=== PATIENT | female | born 1985 | race Caucasian/White ===

== ENCOUNTER 2019-07-30 10:03 | Emergency (ER) | payer OTHER, SELFPAY ==
--- NOTE | 2019-07-30 10:06 | ED.GENADULT ---
HPI - General Adult General Chief complaint: Upper Respiratory Infection Stated complaint: sore throat/sinus pressure/ear pn Time Seen by Provider: 07/30/19 10:06 Source: patient Mode of arrival: ambulatory Limitations: no limitations History of Present Illness HPI narrative: 33-year-old female patient presents to the [facility] with complaints of cold symptoms that started about 3 days ago. Patient states that started with a sore throat and is gotten progressively worse with aches, low-grade fever, bilateral ear pain and some sinus drainage. Patient states that she does have issues of chronic sinusitis. Patient states she has been taking DayQuil and NyQuil for her symptoms. Patient denies getting a flu shot this year. Patient states that she is an active smoker. Denies any chest pain or shortness of breath. Denies any abdominal pain, nausea, vomiting or diarrhea. Related Data Allergies Allergy/AdvReac Type Severity Reaction Status Date / Time LICE [place] Allergy Unknown Uncoded 11/22/14 21:16 Review of Systems Review of Systems: Narrative: CONSTITUTIONAL: Positive low-grade fever, chills, body aches and sweats. EYES: Denies visual changes, redness, or discharge. ENT: Positive rhinorrhea, congestion, sore throat, and bilateral otalgia. CARDIOVASCULAR: Denies chest pain, palpitations, or edema. RESPIRATORY: Positive cough, denies dyspnea. GASTROINTESTINAL: Denies abdominal pain, nausea, vomiting, or diarrhea. GENITOURINARY: Denies dysuria or hematuria. SKIN: Denies rash or itching. MUSCULOSKELETAL: Denies back pain, joint pain, or myalgia. NEUROLOGIC: Denies headache, numbness, or weakness. PSYCHIATRIC: Denies anxiety or depression. [facility] Past Medical History Medical History (Updated 07/30/19 @ 10:27 by DAVIDSON Bean) Fracture Right arm, fractured finger Surgical History Surgical History (Updated 07/30/19 @ 10:09 by DAVIDSON Bean) Hx of tonsillectomy Social History Social History Gender identity (if verbalized by the patient): Female Comments At the time of my signature I agree with nursing past medical history, surgical, social, and family history. There is no relevant family history pertinent to the presenting complaint. Exam Narrative: Exam Narrative: GENERAL: Well-appearing, well-nourished, and in no acute distress. HEAD: Normocephalic, atraumatic. No tenderness noted to frontal maxillary sinuses on palpation. EYES: PERRLA and EOMI. ENT: Nares with erythema and edema noted bilaterally, no rhinorrhea or epistaxis. Mucous membranes moist. Posterior pharynx with 2+ tonsil enlargement slight erythema but no exudates or lesions present. Bilateral TMs are clear with no erythema or foreign bodies in the canal. NECK: Supple. No lymphadenopathy CHEST: Clear to auscultation. No respiratory distress. Patient able to talk in clear complete sentences. HEART: Regular rate and rhythm. No murmur heard. Normal peripheral pulses. ABDOMEN: Soft, nontender, nondistended, normal active bowel sounds. EXTREMITIES: Normal range of motion. No edema. SKIN: Warm, dry, no rash. NEURO: No focal deficits. Alert and oriented x3. Course Vital Signs Vital signs: Vital Signs Temperature 37.3 C 07/30/19 10:18 Pulse Rate 90 07/30/19 10:18 Respiratory Rate 20 07/30/19 10:18 Blood Pressure 126/82 07/30/19 10:18 Pulse Oximetry 100 07/30/19 10:18 Temperature 37.3 C 07/30/19 10:18 Pulse Rate 90 07/30/19 10:18 Respiratory Rate 20 07/30/19 10:18 Blood Pressure 126/82 07/30/19 10:18 Pulse Oximetry 100 07/30/19 10:18 Vital signs reviewed. The patient has been informed that they may have pre-hypertension or Hypertension based on a BP reading in the department. I recommend that the patient call the primary care provider listed on their discharge instructions or a physician of their choice this week to arrange follow up for furthe
[2019-07-30 10:18] VITALS: BP 126/82; PULSE 90; RESP 20; TEMP 37.3; O2SAT 100
== END 2019-07-30 10:30 | disposition home or self-care (01) ==
PROVIDERS: Emergency Provider Nurse Practitioner Family; PCP Family Medicine
DX: J02.0 Streptococcal pharyngitis (principal)
CPT/HCPCS: 87804; 87880; 99213; G0463

== ENCOUNTER 2019-08-09 17:37 | Emergency (ER) | payer OTHER, SELFPAY ==
--- NOTE | ~2019-08-09 | XR_ITS ---
XR chest 2V 08/09/2019 17:57 Indication: Cough, fever. Influenza. Procedure: 2 view chest Comparison: No prior studies for comparison. Findings: Bibasilar airspace disease. Heart size normal. No pleural effusion or pneumothorax. No acut e osseous abnormality. Impression: 1: Bibasilar airspace disease, atelectasis versus developing pneumonia. Reviewed, dictated and finalized at location A. AL PROBLEMS SPECIALIST Impression: 1: Bibasilar airspace disease, atelectasis versus developing pneumonia.
[2019-08-09 17:49] VITALS: BP 123/72; PULSE 137; RESP 20; TEMP 38.5; O2SAT 97
--- NOTE | 2019-08-09 18:03 | ED.URI ---
HPI - URI/Sore Throat General Chief Complaint: Upper Respiratory Infection Stated Complaint: chest congestion Time Seen by Provider: 08/09/19 17:55 Source: patient and RN notes reviewed Mode of arrival: ambulatory Limitations: no limitations History of Present Illness HPI Narrative: Patient presents today complaining of fever, body aches, cough that is occasionally productive, chills, shortness of breath. She was seen at [facility] on 07/30/2019, diagnosed with strep throat and placed on amoxicillin. On 08/07/2019, she was seen by her PCP for continued symptoms. Her flu swab was negative at that time and she was placed on azithromycin. States she had a mild fever 2 days ago, but the fever resolved and did not return until today. T-max today is 102.9. Denies history of asthma. She smokes 0.5 packs/day. She has been taking Mucinex, Flonase, and Zyrtec without relief. MD elicited complaint: fever and cough Related Data Allergies Allergy/AdvReac Type Severity Reaction Status Date / Time L[place] Allergy Unknown Unknown Uncoded 08/07/19 14:53 Review of Systems Review of Systems: Narrative: CONSTITUTIONAL: Denies sweats.+ Body aches, fever, chills EYES: Denies visual changes, redness, or discharge. ENT: Denies rhinorrhea, congestion, sore throat, or otalgia. CARDIOVASCULAR: Denies chest pain, palpitations, or edema. RESPIRATORY: + Cough, shortness of breath GASTROINTESTINAL: Denies abdominal pain, nausea, vomiting, or diarrhea. GENITOURINARY: Denies dysuria or hematuria. SKIN: Denies rash, itching, or wounds. MUSCULOSKELETAL: Denies back pain, joint pain, or myalgia. NEUROLOGIC: Denies headache, numbness, tingling, or weakness. PSYCH: Denies depression or anxiety. [facility] Social History Social History (Updated 08/09/19 @ 18:05 by Malia Davis, [facility], ) Smoking packs per day: 0.5 Smoking cigarettes per day: 10.0 Smoking status: Smoker, status unknown Alcohol intake: current Gender identity (if verbalized by the patient): Female Comments At time of signature, I have reviewed and agree with nursing past medical, surgical, social and family history unless otherwise noted. Please see nursing chart for further information. There is no relevant family history pertinent to the presenting complaint Exam Narrative: Exam Narrative: GENERAL: Ill-appearing, well-nourished, and in no acute distress. HEAD: Normocephalic, atraumatic. EYES: EOMI. No redness or drainage. Conjunctivae normal. ENT: Mucous membranes pink and moist. Nares congested. No rhinorrhea. TMs normal bilaterally. Throat normal. Uvula midline. NECK: Normal AROM. Supple. No lymphadenopathy. CHEST: No respiratory distress. Slight crackle in the right lower lobe and slightly diminished in the left lower lobe, otherwise clear. HEART: Regular rate and rhythm. No murmur appreciated. Normal peripheral pulses. EXTREMITIES: Normal range of motion. No edema. SKIN: Warm, dry, no rash. NEURO: No focal deficits. Alert and oriented x3. Gait steady. PSYCH: Normal affect. No signs of depression or anxiety. Course Vital Signs Vital signs: Vital Signs Temperature 101.3 F H 08/09/19 17:49 Pulse Rate 137 H 08/09/19 17:49 Respiratory Rate 20 08/09/19 17:49 Blood Pressure 123/72 08/09/19 17:49 Pulse Oximetry 97 08/09/19 17:49 Temperature 101.4 F H 08/09/19 18:06 Pulse Rate 137 H 08/09/19 17:49 Respiratory Rate 20 08/09/19 17:49 Blood Pressure 123/72 08/09/19 17:49 Pulse Oximetry 97 08/09/19 17:49 Reviewed. Pt has been instructed to follow up with her PCP regarding her elevated blood pressure today. Tachycardia likely due to fever. Tylenol ordered MDM - URI/Sore Throat Differential Diagnosis Differential diagnosis: Likely upper respiratory infection, viral infection, bronchitis and influenza Lab Data Attestation: I reviewed the patient's lab results. Labs: Influenza A Screen Negative Reference Range
[2019-08-09 18:06] VITALS: TEMP 38.6
[2019-08-09] MEDS: ACETAMINOPHEN 500 MG TABLET 1000 MG PO (18:06)
[2019-08-09 18:23] VITALS: PULSE 126; RESP 26; TEMP 39; O2SAT 97
== END 2019-08-09 18:34 | disposition home or self-care (01) ==
PROVIDERS: Emergency Provider Nurse Practitioner; PCP Family Medicine
DX: J18.9 Pneumonia, unspecified organism (principal); F17.210 Nicotine dependence, cigarettes, uncomplicated
CPT/HCPCS: 71046; 87804; 87880; 99213; A9270; G0463

== ENCOUNTER 2021-07-11 13:44 | Outpatient (CLI) | payer OTHER, SELFPAY ==
--- NOTE | ~2021-07-11 | XR_ITS ---
EXAMINATION: XR chest 2V 07/11/2021 14:13 INDICATION: Cough PROCEDURE: PA and lateral views of the chest COMPARISON: 08/09/2019 FINDINGS: The lungs are clear. The cardiomediastinal silhouette is within normal limits. There are no pleural effusions. There is no pneumothorax suspected. IMPRESSION: 1: NO ACUTE CARDIOPULMONARY DISEASE. Reviewed, dictated and finalized at location B. PTIONIST NURSE
== END 2021-07-11 13:45 ==
PROVIDERS: PCP Nurse Practitioner Family; Visit Provider Nurse Practitioner Family
DX: R05.9 Cough, unspecified (principal)
CPT/HCPCS: 71046